=== PATIENT | male | born 1945 | race Caucasian/White ===

== ENCOUNTER → 2017-03-02 | Outpatient (CLI) | payer MEDICARE, BC ==
[~2017-03-02] MED LIST: AMARYL2 M1 PO; ASPIR 8181 MG PO; AZOR 5-20 MG T1 EACH PO; CONTRAVE ER 8-1 EACH PO; LOPRESSOR12.5 MG/0. PO; NORCO 5-325 MG1 TAB PO; PRILOSEC20 M1 PO; PROTONIX40 MG PO; THERA-VITE W/ B1 TAB PO; TYLENOL325 MG PO; VICTOZA 2-0.6 MG/0.1 SUB-Q; VITAMIN D250000 UNIT PO; ZOCOR20 MG PO; ZOCOR40 MG PO
== END | disposition disaster alternative care site (69) ==
LOC: LKCL 15:39
DX: Z79.899 Other long term (current) drug therapy (principal); N19 Unspecified kidney failure

== ENCOUNTER → 2017-03-03 | Outpatient (CLI) | payer MEDICARE, BC | LOC: LGSMG 11:22 | DX: R80.9 Proteinuria, unspecified (principal) ==